=== PATIENT | male | born 1980 | race Caucasian/White ===

== ENCOUNTER 2025-04-06 21:47 | Inpatient (IN) | payer OTHER, SELFPAY ==
[2025-04-06] VITALS (15 sets, daily range): BP systolic 135–157; BP diastolic 97–115; PULSE 89–124; BMI 32.3
[2025-04-06 11:51] LABS: % Basophils 0.4 % (0-2); % Eosinophils 2.5 % (0-6); % Immature Granulocytes 0.3 % (0-0.5); % Lymphocytes 29.1 % (20.5-51.1); % Monocytes 9.6 % (1.7-9.3); % Neutrophils 58.1 % (42.2-75.2); Absolute Eosinophils 0.2 10^3/uL (0-0.7); Absolute Monocytes 0.7 10^3/uL (0.1-0.6); Absolute Neutrophils 3.9 10^3/uL (1.4-6.5); Hematocrit 33.2 % (39.0-52.0); Hemoglobin 10.9 g/dL (13.0-18.0); Mean Corp Hgb Conc. 32.8 g/dL (33.0-37.0); Mean Corpuscular Hgb 27.7 pg (27.0-31.0); Mean Corpuscular Volume 84.3 fL (80.0-94.0); Mean Platelet Volume 11.6 fL (7.4-10.4); Nucleated Red Blood Cells % 0 % (-); Platelet Count 162 10^3/uL (130-400); Red Blood Cell Count 3.94 10^6/uL (4.70-6.10); Red Cell Dist. Width 13.9 % (11.5-14.5); White Blood Cell Count 6.8 10^3/uL (4.8-10.8)
[2025-04-06 12:24] LABS: Blood Urea Nitrogen 11 mg/dl (9-20); Calcium 9.6 mg/dl (8.4-10.2); Carbon Dioxide 24 mmol/L (22-30); Chloride 103 mmol/L (98-107); Estimated Creatinine Clearance 100 ml/min; Glucose 100 mg/dl (70-99); Sodium 136 mmol/L (135-145); eGFR > 60.00
--- NOTE | 2025-04-06 12:33 | ED.GENMED ---
History of Present Illness
General
Chief Complaint: Dizziness
Source: patient
Exam Limitations: none
Time Seen by Provider: 04/06/25 12:01
Nursing documentation reviewed up to this point in time: agreed with
History of Present Illness
History of Present Illness:
Patient is a 45-year-old male who presents to the ER from nursing home. Patient reports last night he was very short of breath ' cant take a deep breath.' He was checked out today at the [facility] and while there he felt very dizzy, sent to the ER for
evaluation. He was give a liter of NSS. Patient does report he has a history of liver transplant 2020 ([facility]) however also reports he had a thoracentesis while in a alcohol rehab in [place] 2 months ago. He was living in a
sober house prior to present but then started drinking again and was then living with his mom and has not has his meds in about a week.
Review of Systems
Review of Systems
Allergies reviewed?: Yes
All Other Systems: ROS reviewed and negative except as documented in HPI and ROS
Constitutional: Reports no symptoms; Denies fever, fatigue or chills
EENT: Reports no symptoms
Respiratory: Reports trouble breathing
Cardiac: Reports no symptoms
ABD/GI: Reports no symptoms
: Reports no symptoms
Musculoskeletal: Reports no symptoms
Skin: Reports other (itchy rash to legs )
Psychiatric: Reports no symptoms
Phy Exam
General Physical Exam
General Presentation: no apparent distress
General age: appears stated age
General Skin: warm and dry
General Habitus: normal
General Mental: alert
General Hydration: appears well hydrated
Cardiovascular Exam
Cardiovascular Exam: regular rate/rhythm, no murmur and normal peripheral pulses
Pulmonary Exam
Pulmonary Exam: lungs clear and no respiratory distress
Neurological Exam
Neurological Exam: alert and oriented x3
Musculoskeletal Exam
Musculoskeletal Exam: full ROM
Skin Exam
Skin Exam: normal color, warm/dry and other ( b/l legs with macular red rash )
Psychiatric Exam
Psychiatric Exam: normal mood/affect
Course
Orders/Labs/Results
Orders:
Orders
04/06/25 11:35
EKG [Electrocardiogram (*1)] Urgent
Reason for Study: Vertigo / Dizzy
EKG- Treatment ONCE
04/06/25 11:41
Basic Metabolic Panel Urgent
CBC/With Diff [Complete Blood Count/With Diff] Urgent
04/06/25 11:48
Orthostatic VS- Treatment ONCE
04/06/25 12:45
Chest [CR Chest - 2 Views ] Urgent
Comment:
Reason For Exam: sob
04/06/25 14:21
Diphenhydramine [Benadryl] 25 mg IV NOW STA
04/06/25 14:35
DDimer [D-Dimer] Urgent
04/06/25 15:14
CT Chest PE Study Stat
Comment:
Reason For Exam: SOB
04/06/25 18:35
Pro-BNP [NT-proBNP] Urgent
Troponin I Urgent
04/06/25 18:57
Add On- LAB Urgent
Tests Added?: ferritin iron tibc, folate,b12
Legionella Urinary Antigen Routine
MIGUELANGEL Source: Urine
Specimen Description:
Sputum Culture [Respiratory Culture/Gram Stain] Routine
MIGUELANGEL Source: Sputum
Specimen Description:
Strep pneumoniae Antigen Routine
MIGUELANGEL Source: Urine
Specimen Description:
04/06/25 19:00
Ferritin Urgent
Comment: MUST COLLECT
Folate Urgent
Comment: MUST COLLECT
Iron Urgent
Comment: MUST COLLECT
Lhwxk-Dfuc-Dnpvjcu Urgent
Comment: ADD ON
Total Iron Binding Urgent
Comment: MUST COLLECT
Vitamin B12 Urgent
Comment: MUST COLLECT
04/06/25 19:07
COVID-19 Antigen Urgent
Source: Nasal Swab
Influenza A+B Rapid Molecular Urgent
MIGUELANGEL Source: Nasal Swab
Specimen Description:
04/06/25 19:49
Benzocaine/Menthol [Anesthetic Lozenge] 1 lozenge PO Q4HPRN PRN
Cetirizine HCl [Zyrtec] 10 mg PO NOW STA
Heel, Right 2 View [CR Heel/os Calcis - Right 2 Vw] Urgent
Comment:
Reason For Exam: pain
US Abdomen Complete/Upper Urgent
Comment:
Reason For Exam: Right upper quadrant pain status post liver transp
04/06/25 19:51
Add On- LAB Urgent
Tests Added?: PTT/INR
04/06/25 19:52
Add On- LAB Urgent
Tests Added?: LFT panel
04/06/25 19:55
Admit/Transfer Patient As Directed
Co-Sign Provider:
Level of Care: Inpatient admission
Assign to:: Telemetry
Physician / Group: doron alvarado
Diagnosis: R plue eff,etoh abuse, r abd pain hx liver trans,rash arms/le,sunburn knees
Reason for Telemetry: Arrhythmia
Date to Stop Telemetry: 04/09/25
Time to Stop Telemetry: 11:00
Reason for Hospitalization: R plue eff,etoh abuse, r abd pain hx liver trans,rash arms/le,sunburn knees
Expected length of stay greater than two midnights?: Yes
ELOS- Estimated Length of Stay in days: 4
I certify the patient meets the requirements for IP care: Yes
Code Status As Directed
Resuscitation Status: Full Code
04/06/25 19:57
PTT Routine
04/06/25 20:06
PRN Pain Medication Management As Directed
May give lesser potent ordered pain med per pt: Yes
preference::
Protocol:: Medication orders for pain may be administered in a
manner that supports deferring to patient preference
when the pt is:
- Requesting an ordered lesser potent pain medication.
Least to most potent pain medications are defined
as: acetaminophen < NSAID < tramadol < opioids
(morphine, oxycodone, hydromorphone).
- Requesting a lesser dose of the same medication IF
ORDERED.
- Requesting a less intrusive route of administration
if both routes are prescribed by the provider (PO <
IV).
04/07/25 08:00
Cetirizine HCl [Zyrtec] 10 mg PO DAILY
Petrolatum/Mineral Oil [Hydrophor] See Dose Instructions TOPICAL DAILY
Silver Sulfadiazine [Silvadene] See Dose Instructions TOPICAL DAILY
04/09/25 11:00
DC Protocol for Telemetry ONCE
Abnormal Lab Results
04/06/25 04/06/25
11:41 14:35
RBC 3.94 L 10^6/uL
(4.70-6.10)
Hgb 10.9 L g/dL
(13.0-18.0)
Hct 33.2 L %
(39.0-52.0)
MCHC 32.8 L g/dL
(33.0-37.0)
MPV 11.6 H fL
(7.4-10.4)
Absolute Monos (auto) 0.7 H 10^3/uL
(0.1-0.6)
Monocytes % 9.6 H %
(1.7-9.3)
D-Dimer 2.49 H ug/mlFEU
(0.00-0.50)
Glucose 100 H mg/dl
(70-99)
04/06/25 11:41
04/06/25 11:41
Vital Signs
Initial and Last Documented VS:
Initial Vital Signs
Temp Pulse Resp BP Pulse Ox
98.7 F 95 15 149/102 97
04/06/25 11:36 04/06/25 11:36 04/06/25 11:36 04/06/25 11:36 04/06/25 11:36
Last Documented Vital Signs
Temp Pulse Resp BP Pulse Ox
98.7 F 98 21 156/103 97
04/06/25 11:36 04/06/25 15:15 04/06/25 15:15 04/06/25 15:00 04/06/25 15:15
MDM/Problems Addressed
MDM/Problems Addressed:
Patient is a 45-year-old male sent from [facility] for evaluation. This document patient was sent for shortness of breath and dizziness. Patient has a history of alcohol abuse liver transplant however has not taken his antirejection meds
in the past several days. He was given a liter of fluids at the nursing home prior to arrival. Patient describes some discomfort with deep breath. He is not hypoxic. He does report that he had a pleural effusion drained in [place] 2 months ago while
in recovery house. Patient's workup includes labs and a CT scan(as his D-dimer was elevated. CT scan does show a moderate size right pleural effusion mild cardiomegaly and with symptoms of shortness of breath would recommend admission. Case
reviewed ED physician. His BNP is 283 with a negative troponin his white count is normal.
Patient was given a little Benadryl because he complains of bilateral itchy rash from his present garments.
*Radiology
Radiology exam reviewed: radiology read reviewed
*Pulse Oximetry
Patient hypoxic: no
*EKG
Interpreted by ED Provider?: Yes
Heart Rate: 93
Rate: normal
Rhythm: sinus
Ischemia: no ischemia
*Critical Care Note
Total Time (30-74mins, 75-104mins- exclusive of procedures): Not Applicable
ED Attending Note
-
Portions of this chart may have been created with voice recognition software.� Occasional wrong word or��sound alike� substitutions may have occurred due to the inherent limitations of voice recognition software.
Discharge Plan
Departure
Patient Disposition: Admit
Date of Disposition: 04/06/25
Time of Disposition: 18:37
Admit to: Telemetry
Admit to doctor: hospitalist
Presentation/result/management discussed w/ accepting MD/DO: Hospitalist
Patient with high blood pressure during this ER visit?: Yes
Condition: Fair
Covid-19: Not Applicable
Discharge Problem:
shortness of breath, Pleural effusion, Dizziness
Prescriptions:
No Action
atorvastatin [Lipitor] 40 mg Tablet
40 mg PO HS
mycophenolate mofetil 250 mg Capsule
750 mg PO BID
prednisone 5 mg Tablet
5 mg PO DAILY
clonazepam 1 mg Tablet
1 mg PO DIRECTED
Rx Instructions:
on 04/06 and 04/07 take 2mg bid then on 04/08 and 04/09 take 1mg tid then on 04/10 and 04/11 take 1mg bid then on 04/12 and 04/13 take 0.5mg bid then on 04/14 take 0.5mg daily then stop
thiamine HCl (vitamin B1) 100 mg Tablet
100 mg PO DAILY
aspirin 81 mg Tablet,Delayed Release (Dr/Ec)
81 mg PO DAILY
gabapentin 800 mg Tablet
800 mg PO TID
hydrocortisone 1 % Cream
1 applic TOPICAL BIDPRN PRN (Reason: skin problem)
folic acid 1 mg Tablet
1 mg PO DAILY
tacrolimus [Prograf] 0.5 mg Capsule
1.5 mg PO Q12H
escitalopram oxalate [Lexapro] 10 mg Tablet
10 mg PO DAILY
lactulose 10 gram/15 mL Solution
10 g PO TID
cholecalciferol (vitamin D3) [Vitamin D3] 25 mcg (1,000 unit) Tablet
25 mcg PO DAILY
insulin glargine [Semglee Pen U-100 Insulin] 100 unit/mL (3 mL) Insulin Pen
20 unit SC QPM
Xifaxan 550 mg Tablet
550 mg PO BID
magnesium oxide 400 mg magnesium Tablet
400 mg PO TID
Referrals:
[facility] [Family Provider] -
Interventions
Interventions:
*Risk Screen - Suicide Last Done: 04/06/25 11:36
*General Assessment Last Done: 04/06/25 11:36
*Neglect/Abuse Screening Last Done: 04/06/25 11:36
*ED- Fall Risk Assessment Last Done: 04/06/25 11:36
ED- Neurological Assessment Last Done: 04/06/25 11:46
ED- Cardiac Assessment Last Done: 04/06/25 11:46
ED Swallowing Screen Last Done: 04/06/25 11:46
Discharge Date and Time
Print Language: CHINESE
[2025-04-06] MEDS: BENADRYL 25 MG IV (14:29)
[2025-04-06 15:02] LABS: D-Dimer 2.49 ug/mlFEU (0.00-0.50)
--- NOTE | 2025-04-06 18:55 | HPS.HSE ---
Family Physician
-
Family Physician: Facility [facility]
Chief Complaint
-
shortness of breath
History of Present Illness
45-year-old male from [facility] complaining of feeling short of breath since last night with having difficulty taking a deep breath. He also complains of right upper quadrant pain along the incision line near his current
liver. He went to the [facility] today where he was complaining of dizziness and sent to the ER for evaluation. He is status post liver transplant at [facility] in 2020 secondary to alcohol abuse. He reports receiving a hepatitis C infected
liver however he was treated for hepatitis C after that for approximately 6 months he then began drinking only 8 to 9 months after his transplant. He reports he would binge drink and then for the past year has been drinking 2 pints of vodka
approximately 3 times a week. He states during 2020 he also had acute renal failure and did require temporary dialysis in and 2021. He has been from his since August however he went to his home on Saturday the police were
called that she has a PFA. He was driven to a local hotel and told to stay there but he decided during his intoxicated state to go back to his home to try to drive his truck that is when he was arrested was unable to post bail and taken to [facility]. He reports he has been missing his medication for 5 days at a time. He has been in and out of a sober living house since January he has only been sober approximately 4 weeks in between he has been at multiple rehabs.
He states he was at a rehab in [place] where he injured his left knee playing football with his son that is swollen. He states he had it x-rayed a few weeks ago and told he could possibly have a ligament injury. His right heel has
been bothering him due to his gait being off balance from the injury. He states he was in [place] at a rehab in January where he had fluid developed in his right lung that was drained by thoracentesis this was thought to be due to his liver. He is
also not been taking any blood pressure medication since 2020.
His past medical history of liver failure due to alcohol use status post liver transplant [facility] 2020 on antirejection medication, history of hepatitis C liver transplant that was treated post transfer, history of temporary dialysis 2020
and 2021 due to acute renal failure, right sided pleural effusion status postthoracentesis January 2024 in [place] thought to be due to liver, anxiety/depression, DM2, hypertension
Medical History
Past Medical History
Past Medical History: Reports Other
Additional Past Medical History:
liver failure due to alcohol use status post liver transplant [facility] 2020 on antirejection medication
history of hepatitis C liver transplant that was treated post transfer
history of temporary dialysis 2020 and 2021 due to acute renal failure
right sided pleural effusion status postthoracentesis January 2024 in [place] thought to be due to liver
Current alcohol abuse binge drinker
anxiety/depression
DM2
hypertension
Occasional smoker
History of ARF 2020 requiring temporary dialysis at [facility]
Eczema bilateral hands
Past Surgical History: Reports Other
Additional Past Surgical History:
Liver transplant 2020
Social History
Tobacco: Smoker (Smokes when he is drinking)
Alcohol: Chronic Alcoholic (Currently drinking 2 pints of vodka 3 times a week)
Drug: None
Personal: (But currently with a protection from abuse)
Living: [facility] since April 03, 2025)
Family History
Family History: Not pertinent
Allergies / Home Medications
Allergies reflects when Allergies were last updated in [employer].
Home Medications with original date entered in [employer]
Allergy/Medication List:
Allergies
Allergy/AdvReac Type Severity Reaction Status Date / Time
No Known Allergies Allergy Unverified 04/06/25 11:39
Home Medications
aspirin 81 mg tablet,delayed release 81 mg PO DAILY 04/06/25
atorvastatin 40 mg tablet (Lipitor) 40 mg PO HS 04/06/25
cholecalciferol (vitamin D3) 25 mcg (1,000 unit) tablet (Vitamin D3) 25 mcg PO DAILY 04/06/25
clonazepam 1 mg tablet 1 mg PO DIRECTED 04/06/25
escitalopram oxalate 10 mg tablet (Lexapro) 10 mg PO DAILY 04/06/25
folic acid 1 mg tablet 1 mg PO DAILY 04/06/25
gabapentin 800 mg tablet 800 mg PO TID 04/06/25
hydrocortisone 1 % topical cream 1 applic topical BIDPRN PRN skin problem 04/06/25
insulin glargine 100 unit/mL (3 mL) subcutaneous pen 20 unit SC QPM 04/06/25
lactulose 10 gram/15 mL oral solution 10 g PO TID 04/06/25
magnesium oxide 400 mg PO TID 04/06/25
mycophenolate mofetil 250 mg capsule 750 mg PO BID 04/06/25
prednisone 5 mg tablet 5 mg PO DAILY 04/06/25
rifaximin 550 mg tablet (Xifaxan) 550 mg PO BID 04/06/25
tacrolimus 0.5 mg capsule, immediate-release (Prograf) 1.5 mg PO Q12H 04/06/25
thiamine HCl (vitamin B1) 100 mg tablet 100 mg PO DAILY 04/06/25
Review of Systems
-
History Source: Patient and Other (2 correctional officers at bedside)
A 12 point ROS was completed and negative except as noted: Yes
Constitutional: Denies Fever or Chills
EENT: Reports Sore Throat and Other (Postnasal drip with swollen uvula no erythema)
Respiratory: Reports Cough (Nonproductive) and Trouble Breathing
Cardiac: Denies Chest Pain, Diaphoresis, Palpitations or Syncope
Abdomen/GI: Reports Abdominal Pain (Right upper quadrant along liver incision line); Denies Nausea, Vomiting, Diarrhea, Constipated, Bloody Stools or Black Stools
: Reports Dark Urine (Centre-colored urine); Denies Dysuria, Frequency, Flank Pain, Incontinence, Difficulty Voiding, Urgency or Bleeding
Musculoskeletal: Reports Joint Pain (Left knee with effusion) and Other (Right heel pain with tender heel no erythema); Denies Edema
Skin: Reports Itching and Rash (Eczema bilateral hands to lower forearms, petechial rash with wheals to arms and legs from present jumpsuit, sunburn bilateral thighs and knees)
Neurological: Denies Dizzy or Headache
Endocrine: Reports No Symptoms
Hematologic/Lymphatic: Reports No Symptoms
Psych: Reports Calm
Physical Exam
Vital Signs
Vital Signs
Temp Pulse Resp BP Pulse Ox
98.7 F 98 21 156/103 97
04/06/25 11:36 04/06/25 15:15 04/06/25 15:15 04/06/25 15:00 04/06/25 15:15
Physical Exam
General: Comfortable and Conversant; No Fever or Chills
HEENT: NormoCephalic, Anicteric, Moist mucous membranes, PERRLA, [place] Conjunctivae, No Ptosis and Other (Swollen clear uvula with reported postnasal drip); No Pharyngeal Erythema
Respiratory: Clear and Other (Diminished lung sounds throughout right lung); No Wheezes or Rales
Cardiac: S1/S2 and Regular Rhythm; No Murmur, Rub, Gallop or Peripheral Edema
Breast: Deferred by me
GI: Soft, Non Distended, Normal Bowel Sounds and Tender (Right upper quadrant along incision line status post liver transplant)
Genito-urinary: Deferred by me
Musculoskeletal: No Clubbing, No Cyanosis, No Edema and Other (Swollen left knee x 1 month, right heel with pain and tenderness, bilateral ankles handcuffed to bed)
Skin: Warm, Dry and Rash (Eczema bilateral hands to lower forearms, petechial rash with wheals to arms and legs from present jumpsuit, sunburn bilateral thighs and knees)
Neuro: AO x 3, No Motor Deficits, Nonfocal/grossly intact, Cranial Nerves Intact and No Sensory Deficits; No Slurred Speech, Facial Droop, Tremors or Sedated
Psych: Calm
Laboratory Results
-
04/06/25 11:41
04/06/25 11:41
Laboratory Results
Total Bilirubin Cancelled 04/06/25 11:41
AST Cancelled 04/06/25 11:41
ALT Cancelled 04/06/25 11:41
Alkaline Phosphatase Cancelled 04/06/25 11:41
Data Reviewed
-
Diagnostic Radiology: Report Reviewed by me
Lab Data: Labs Reviewed by me
Impression/Plan
-
Impression/plan:
Admit to telemetry
#Acute dyspnea 2/2 Moderate RIGHT Sided pleural effusion with possible Right lower lobe Pneumonia VS CHF
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
97% RA
- Consult IR for thoracentesis with cytology
- IV vancomycin ,IV Zosyn
-Check BNP
- Strep antigen, Legionella, sputum culture
- Follow CBC, CMP
CT PE study:
1. MODERATE-SIZED RIGHT PLEURAL EFFUSION.
2. Moderate subpleural ground-glass opacity in the basilar segments of the right lower lobe. Diagnostic possibilities are (1) compressive subsegmental atelectasis or (2) right lower lobe pneumonia
(if there are signs/symptoms of pulmonary infection).
3. Mild cardiomegaly.
4. Mild calcific atherosclerotic plaque in the left coronary artery.
5. Right upper quadrant liver transplant in place.
6. Severe bilateral gynecomastia.
#Uncontrolled hypertension
BP 156/103 patient has not taken his carvedilol XR since 2020
-As needed labetalol SBP> 165
EKG: NSR 93 bpm, QTc 442 MS, possible inferior infarct subtle T wave inversions lead III and flattening in aVF
#Contact dermatitis with urticarial rash likely secondary to laundry detergent from longterm
- Continue prednisone 5 mg daily
- Start Zyrtec 10 mg now and daily
- May apply Aquaphor to hands and legs
#Uvulitis viral with postnasal drip
- Will start saline nasal spray and Zyrtec 10 mg now and daily
#Eczema bilateral hands/forearms exacerbation
-Aquaphor may apply to hands and legs
#Alcohol abuse started drinking 8 to 9 months after his liver transplant
-Last drink 04/05/2025 typically drinks 2 pints of vodka 3 times a week binge drinks until he passes out
Patient has been receiving clonazepam at [facility]
-Continue folic acid 1 mg daily
- Start thiamine 100 mg p.o. daily
-was on clonazepam in long-term last drink was 3 days ago will continue patient's clonazepam taper starting with 2 mg twice daily to taper down to 0.5 mg on 04/13
-MSAS screen with protocol
#Right upper quadrant pain at prior incision line
#Liver transplant [facility] 1�received hepatitis C liver that was treated for hepatitis C post transfer
#History of liver failure due to alcohol abuse
- Patient has missed his rejection medication over the past 5 days
- Resume Prograf 1.5 mg every 12 hours, Xifaxan 550 mg p.o. twice daily, lactulose 10 g p.o. 3 times daily
- Continue mycophenolate 750 mg p.o. twice daily
- Continue prednisone 5 mg daily
- Continue Mag-Ox 400 mg p.o. 3 times daily
*Check ultrasound right upper quadrant due to pain along right upper quadrant and along prior incision line concern for any ascites
# Acute on chronic left knee swelling due to prior twist injury playing football December 2024
- Recommend follow-up outpatient MRI of left knee once bailed out of long-term by patient's father
# Acute right heel pain/erythema likely due to weightbearing right leg from left knee swelling
-X-ray right heel
# Acute sunburn bilateral knees upper thighs
- Apply Silvadene cream to bilateral thighs/knees
#DM 2/diabetic neuropathy
Accu-Cheks with SSI, check HgbA1c
Glucose 100
-Hold insulin glargine 20 units SQ every afternoon due to glucose 100
- Continue gabapentin 800 mg p.o. 3 times daily
#History of ARF with temporary dialysis 2020/2021 during transplant stay
#Anxiety/depression
Continue Lexapro 10 mg daily,
#Anemia�normocytic
Hgb 10.9
-Check iron panel, B12, folate
#HLD
Continue Lipitor 40 mg at bedtime
#Class I obesity�BMI 32.2
Affects all aspects of care
Weight loss recommended
DVT prophylaxis
Subcu heparin
Full code
[2025-04-06 19:04] LABS: NT-proBNP 283 pg/ml; Troponin I < 0.012 ng/ml
[2025-04-06 19:43] LABS: COVID-19 Antigen Negative (Negative)
--- NOTE | 2025-04-06 19:58 | W.PN.UPDATE ---
Update Note
Progress Note Update
This is an addendum to H&P written by Yolande Hannah on 04/06/2025.� Patient seen examined independently with MANAGER SUPPORT.
45-year-old male past medical history of alcoholic cirrhosis status post liver transplant in 2020, history of thoracentesis secondary to hepatic hydrothorax 2 months ago, diabetes, anxiety/depression, neuropathy, presenting from present with
shortness of breath, cough.� Has been drinking alcohol and not taking his transplant medications.
Complains of right upper quadrant pain at the site of liver transplant.
He complains of left knee pain and swelling that has been ongoing since December.� He recently had x-rays and was told that he may have had an MCL injury.� Also complains of right heel pain, and warmth.�
Also has bilateral lower extremity itchy rash since wearing present jumpsuit.
Also with enlarged inflamed uvula with sore throat and postnasal drip.
Patient with elevated blood pressure up to 156/103.
D-dimer of 2.5.� Hemoglobin 10.9.
On examination he has enlarged uvula without erythema.� He has swollen left knee with erythema above likely sunburn.� On the lower extremities he has urticarial rash below the knees bilaterally.� He has eczema on the bilateral hands.
Chest x-ray shows no acute pulmonary process.� CT PE chest shows moderate-sized right pleural effusion, moderate subpleural groundglass opacity in the basilar segments of the right lower lobe possibly secondary to compressive segment segmental
atelectasis versus right lower lobe pneumonia.� Mild cardiomegaly.
COVID and flu pending.
Cardiac BNP pending.
Patient with likely right lobar pneumonia with parapneumonic effusion versus pleural effusion secondary to hepatic hydrothorax which is more likely.
Start vancomycin/Zosyn.� Check sputum culture, strep antigen, Legionella.� IR for thoracentesis with pleural fluid studies.� Check liver ultrasound to evaluate for ascites and evidence of transplant rejection.� Check LFTs.� Check INR.� Alcohol
withdrawal protocol, thiamine and folate.� As needed labetalol for hypertension.
Start Zyrtec to treat urticaria.� Already on prednisone. Aquaphor for contact dermatitis from [employer] uniform. Silvadene for sunburn.
Check right heel x-ray due to pain warmth.
Outpatient follow-up for MRI of the left knee to evaluate MCL injury.
[2025-04-06 20:33] LABS: APTT 36.6 Sec (23.4-35.0)
[2025-04-06 20:37] LABS: ALT (SGPT) 39 U/L (0-50); AST (SGOT) 44 U/L (17-59); Albumin 3.6 g/dl (3.5-5.0); Alkaline Phosphatase 217 U/L (38-126); Direct Bilirubin 0.6 mg/dl (0.0-0.4); Iron 36 ug/dl (49-181); Total Bilirubin 2.6 mg/dl (0.2-1.3); Total Protein 6.6 g/dl (6.3-8.2)
[2025-04-06 20:46] LABS: Percent Saturation 11 % (20-50); Total Iron Binding Capacity 306 ug/dl (261-462)
[2025-04-06] MEDS: ZYRTEC 10 MG PO (21:20)
[2025-04-06 21:43] LABS: Folate > 20.0 ng/ml (2.76-20); Vitamin B12 968 pg/ml (239-931)
[2025-04-06 23:37] LABS: Hematocrit 32.4 % (39.0-52.0)
[2025-04-06 23:42] LABS: GGTP 439 U/L (15-73); Glucose 105 mg/dl (70-99); INR 1.19; LDH 168 U/L (120-246); Magnesium 1.4 mg/dl (1.6-2.3); PT 15.4 Sec (11.4-14.6); Phosphorus 3.8 mg/dl (2.5-4.5); Total Protein 6.2 g/dl (6.3-8.2)
[2025-04-06 23:43] LABS: APTT 33.6 Sec (23.4-35.0)
[2025-04-06 23:46] LABS: Alcohol None Detected
[2025-04-06 23:46] LABS: Urine Albumin 2+ (Neg - Trace); Urine Bilirubin Negative (Negative); Urine Character Clear (Clear); Urine Color Yellow; Urine Glucose Negative (Negative); Urine Ketone Negative (Negative); Urine Leukocyte Negative (Negative); Urine Nitrite Negative (Negative); Urine Occult Blood Negative (Negative); Urine Specific Gravity 1.015 (<1.030); Urine Urobilinogen 2+ (Neg - 1+)
[2025-04-06 23:49] LABS: B-Hydroxybutyrate 0.08 mmol/L (0.02-0.27)
[2025-04-06 23:54] LABS: Urine Bacteria Few (Negative); Urine Red Blood Cell 0-2 /HPF (0-2); Urine White Cell 0-2 /HPF (0-5)
[2025-04-06 23:58] LABS: Amphetamines Negative (Negative); Barbiturates Negative (Negative); Benzodiazepines Positive (Negative); Buprenorphine Negative (Negative); Cocaine Negative (Negative); Marijuana Negative (Negative); Methadone Negative (Negative); Methamphetamines Negative (Negative); Opiates Negative (Negative); Phencyclidine Negative (Negative); Tricyclic Antidepressants Negative (Negative)
[2025-04-07] VITALS (10 sets, daily range): BP systolic 125–166; BP diastolic 86–115; BMI 32.1
[2025-04-07] MEDS: MOTRIN 400 MG PO (00:09)
[2025-04-07] MEDS: NEURONTIN 800 MG PO ×4 (00:09→23:27)
[2025-04-07] MEDS: DUPHALAC/CHRONULAC 10 GRAMS PO ×4 (00:10→23:26)
[2025-04-07] MEDS: KLONOPIN 2 MG PO ×2 (00:10→08:46)
[2025-04-07] MEDS: PROGRAF 1.5 MG PO ×3 (00:11→23:28)
[2025-04-07] MEDS: OCEAN, SALINE MIST NASAL ×4 (00:12→12:47)
[2025-04-07] MEDS: ZOSYN 50 IV ×4 (00:12→16:17)
[2025-04-07] MEDS: THIAMINE INJECTION 200 MG IV ×3 (00:13→21:36)
[2025-04-07] MEDS: MAG-TAB SR 84 MG PO ×4 (00:14→23:27)
[2025-04-07 00:23] LABS: Fentanyl, Urine Negative (Negative)
--- NOTE | 2025-04-07 00:45 | W.PN.UPDATE ---
Update Note
Progress Note Update
Reported by the nursing staff that the patient has suicidal ideation.
On assessment,
Patient is alert and oriented looks depressed, teary eyes during our conversation. He started to explain his life situation, separation with and kids and how it affects his life now.
he admitted that he has suicidal ideation but does not have a plan at the mean time and he wish that he has the courage to do it.
Will order 1:1 for now for safety and psych consult placed.
[2025-04-07] MEDS: VANCOCIN 540 MG IV (00:57)
[2025-04-07 06:02] LABS: % Basophils 0.7 % (0-2); % Eosinophils 3.1 % (0-6); % Immature Granulocytes 0.2 % (0-0.5); % Lymphocytes 34.7 % (20.5-51.1); % Monocytes 11.4 % (1.7-9.3); % Neutrophils 49.9 % (42.2-75.2); Absolute Eosinophils 0.2 10^3/uL (0-0.7); Absolute Lymphocytes 1.9 10^3/uL (1.2-3.4); Absolute Monocytes 0.6 10^3/uL (0.1-0.6); Absolute Neutrophils 2.8 10^3/uL (1.4-6.5); Hematocrit 30.8 % (39.0-52.0); Hemoglobin 10.2 g/dL (13.0-18.0); Mean Corp Hgb Conc. 33.1 g/dL (33.0-37.0); Mean Corpuscular Volume 84.6 fL (80.0-94.0); Mean Platelet Volume 10.7 fL (7.4-10.4); Nucleated Red Blood Cells % 0 % (-); Platelet Count 157 10^3/uL (130-400); Red Blood Cell Count 3.64 10^6/uL (4.70-6.10); White Blood Cell Count 5.5 10^3/uL (4.8-10.8)
[2025-04-07 06:24] LABS: ALT (SGPT) 33 U/L (0-50); AST (SGOT) 36 U/L (17-59); Albumin 3.4 g/dl (3.5-5.0); Alkaline Phosphatase 216 U/L (38-126); Blood Urea Nitrogen 9 mg/dl (9-20); Calcium 8.6 mg/dl (8.4-10.2); Carbon Dioxide 22 mmol/L (22-30); Chloride 108 mmol/L (98-107); Estimated Creatinine Clearance 110 ml/min; Glucose 89 mg/dl (70-99); Potassium 3.8 mmol/L (3.5-5.1); Sodium 139 mmol/L (135-145); Total Bilirubin 2.1 mg/dl (0.2-1.3); Total Protein 6.1 g/dl (6.3-8.2); eGFR > 60.00
[2025-04-07 08:42] LABS: Glucose - Point of Care 90 mg/dl (70-99)
[2025-04-07] MEDS: NOVOLOG FLEXPEN-LOW RESISTANCE SC ×3 (08:44→16:56)
[2025-04-07] MEDS: XIFAXAN 550 MG PO ×2 (08:45→21:37)
[2025-04-07] MEDS: VITAMIN D3 (cholecalciferol) 25 MCG PO (08:45)
[2025-04-07] MEDS: FOLVITE 1 MG PO (08:45)
[2025-04-07] MEDS: LEXAPRO 10 MG PO (08:45)
[2025-04-07] MEDS: ZYRTEC 10 MG PO (08:45)
[2025-04-07] MEDS: ASPIR LOW (ENTERIC COATED) 81 MG PO (08:45)
[2025-04-07] MEDS: DELTASONE 5 MG PO (08:45)
[2025-04-07] MEDS: CELLCEPT 750 MG PO ×2 (08:48→21:31)
[2025-04-07] MEDS: HYDROPHOR TOPICAL ×2 (08:49→08:53)
[2025-04-07] MEDS: SILVADENE TOPICAL ×2 (08:50)
[2025-04-07 08:55] LABS: Glycohemoglobin (HgbA1c) 5.1 % (4.0-5.6)
[2025-04-07] MEDS: VANCOCIN 530 MG IV (09:04)
--- NOTE | 2025-04-07 09:52 | CM ---
Case Management Consult completed
[employer] In[employer] spoke with [place] RN; reported that patient was incarcerated on 04/04
When asked if [facility] counselor can be consulted to meet with patient, [facility] RN, stated 'NO'; she will contact the ED for report and arrange for patient to be transported back to facility once patient is stable
--- NOTE | 2025-04-07 09:53 | PHA.VAN.IN ---
Assessment
- Assessment
Renal Function: Unknown baseline
Maximum Temperature: 99
Minimum Temperature: 98.1
Concomitant Antimicrobials: piperacillin/tazobactam
AUC Dosing Plan
- Dosing Variables
Dosing Weight (kg): 99
Dosing CrCl (ml/min): 100
Vd coefficient (L/kg): 0.6
- Empiric Dosing
Initial / Loading Dose: vancomycin 2000 mg x 1
Maintenance Regimen: vancomycin 1250 mg Q12H
Estimated AUC (mcg*h/mL): 513
Estimated Peak (mcg*h/mL): 32.4
Estimated Trough (mcg/ml): 12.9
Estimated Half Life (H): 7.9
- Monitoring
No levels ordered at this time: consider levels in next few days
MRSA Screen: Ordered per protocol
Pharmacokinetics Vancomycin I
- -
Patient Age: 45
Patient Sex: Male
Vancomycin Day #: 1
Indication: Pulmonary/Respiratory
Requesting Provider: Yolande Hannah
Pertinent Antimicrobial Allergies:
nkda
Height / Weight:
Height 5 ft 9 in
Actual Weight 99 kg
IBW in k.7
Adjusted BW in k
Pertinent Past Medical History: lier transplant in 2020
- Vital Signs / Lab Results
Temp Pulse Resp BP Pulse Ox
98.1 F 80 11 147/115 100
04/07/25 07:44 04/07/25 09:33 04/07/25 09:33 04/07/25 09:33 04/07/25 09:35
Lab Results - Hematology
04/06/25 04/07/25
11:41 05:42
WBC 6.8 5.5
Lab Results - Chemistry
04/06/25 04/06/25 04/07/25
11:41 20:10 05:42
BUN 11 9
Creatinine 1.1 1.0
Estimated Creat Clear 100 110
Albumin Cancelled 3.6 3.4 L
Lab Results - Urine
04/06/25
23:39
Urine Nitrite Negative
Ur Leukocyte Esterase Negative
Urine WBC 0-2
Ur Squamous Epith Cells 3-5
Urine Bacteria Few A
Microbiology Results
04/06/25 20:11 Legionella Urinary Antigen - Final
Urine Negative for Legionella pneumophila Serogroup 1 antigen.
A negative result does not rule out the possiblity of
Legionella infection due to other serogroups or species of
Legionella. Clinical correlation is recommended.
Streptococcus pneumoniae Antigen (M - Final
Negative for Streptococcus pneumoniae antigen.
A negative result does not exclude infection with
Streptococcus pneumoniae. Clinical correlation is
recommended.
04/06/25 19:07 Influenza Types A & B (ADAN) - Final
Nasal Swab Negative for Influenza A & B, NAAT
Negative results must be combined with clinical observations
and patient history.
Nucleic Acid Amplification test (NAAT)performed on the
[employer] platform.
--- NOTE | 2025-04-07 11:39 | CON.MD ---
Consultation - Medical
-
patient seen chart reviewed. the patient is a 45 year old male brought here from [facility] bc shortness of breath and dizziness. in the course of treating him he made comments about suicidality hence this consult. he has had major stressors in his
life. he had a liver transplant in 2020 after liver failure allegedly secondary to his etoh abuse. the transplanted liver with infected w hep c. he was treated afterwards for hep c. about six to nine months after rx he started drinking again in
binge fashion two pints vodka about 3 x weekly. at this point he could have pneumonia w effusion or effusional could be secondary to liver disease (hepatic hydrothorax) he admits he has thought of suicide but has never made an attempt and has no
intent or plan. he would not act on si while here. he and his have . he has three dies 13 11 and 7 he attempted to his home and violated a pfa she had and wound up in fdc. at this point he wants treatment. he is hoping he can get
his physical needs addressed first then consider where to go for his etoh abuse and depression. he is currently taking lexapro 10 mg . he is on a quick taper of klonopin over the next several days. he is also taking gabapentin 800 mg tid.
past psych hx patient has been admitted in the past for psych to dual dx rehab and straight psych facilities ([facility]) he does not feel any of his stays were helpful. he was not currently in out pt treatment
medical hx see above in addition overweight smoker htn dm hx dialysis in periods of renal failure eczema currently has rash. anemia bzp in tox bal zero ecg qtc 442 abnormal
fh depression anxiety
substance abuse see above denies other
social at this point from . three kids currently incarcerated at [facility] disabled
mse alert ox3 but a little sleepy. speech and thought process c/w sedated state. goal oriented no psychosis affect constricted mood depressed. states has had si but will not hurt self aver intell insight judgment impaired
dx unspecified depression r.o bipolar etoh use disorder severe
plan would continue w current regimen but i do wonder if we should start him on msas protocol. his bp is quite high this am although he seems more sedated at this moment than withdrawing. . will discuss w er pharmacist. the senior living has said we are
not to contact [facility]. he will need aftercare would suggest dual dx but or course medical rx comes first. do not feel he needs one to one . he has two senior living guards next to him in any case. will follow
[2025-04-07 12:42] LABS: Glucose - Point of Care 124 mg/dl (70-99)
--- NOTE | 2025-04-07 14:01 | W.PN.HOSP.TC ---
Addendum entered and electronically signed by Marcos Aceves MD 04/07/25 23:06:
Attending Addendum-
I saw and evaluated the patient. I reviewed the resident�s note and agree with findings and plan as documented in the resident�s note. Sub: Denies SI or HI. Feels SOB and requesting Benadryl. Seen with CO present. Denies CP palps. fevers chills.
Full 12 point ROS reviewed and negative except as documented Exam: Vitals reviewed in chart GEN-NAD Heart RRR lungs decreased BS RLL abd soft LE no edema
Plan:
#Acute dyspnea
#History of pleural effusion drained before in [place] approximately 2 months ago patient was told due to hepatic hydrothorax
97% RA
- Consult IR for thoracentesis- not enough fluid to tap per chest US
- CT chest- no pe but showing moderate right pleural effusion? CXR- WNL
- DC vancomycin/ Zosyn- no sxs correlating with PNA
- Strep antigen, Legionella, sputum culture-neg
- Follow CBC, CMP
- repeat CXR in am
# SI
- denying SI or plan
- DC 1:1
- appreciate psych Input
#Uncontrolled hypertension
- As needed labetalol SBP> 165
- start norvasc
#Contact dermatitis with urticarial rash likely secondary to laundry detergent from detention
- cont Zyrtec 10 mg now and daily
- May apply Aquaphor to hands and legs
#Eczema bilateral hands/forearms exacerbation
-Aquaphor may apply to hands and legs
#Alcohol abuse started drinking 8 to 9 months after his liver transplant
- Last drink 04/05/2025 typically drinks 2 pints of vodka 3 times a week binge drinks until he passes out
- Patient has NOT been receiving clonazepam at [facility]
- PDMP reviewed
- Continue folic acid 1 mg daily
- Start thiamine 100 mg p.o. daily
- DC clonazepam
- start [facility] protocol with sxs based treatment
#Right upper quadrant pain at prior incision line
#Liver transplant [facility] 2021�received hepatitis C liver that was treated for hepatitis C post transfer
#History of liver failure due to alcohol abuse
- Patient has missed his rejection medication over the past 5 days
- Resume Prograf 1.5 mg every 12 hours, Xifaxan 550 mg p.o. twice daily, lactulose 10 g p.o. 3 times daily
- Continue mycophenolate 750 mg p.o. twice daily
- Continue prednisone 5 mg daily
# right calc small fx
-PT OT WBAT
#DM 2/diabetic neuropathy
Accu-Cheks with SSI
Glucose 100
- Hold insulin glargine 20 units SQ every afternoon due to glucose 100- sugars controlled off insulin
- Continue gabapentin 800 mg p.o. 3 times daily
- check HBa1c
#History of ARF with temporary dialysis during transplant stay
#Anxiety/depression
Continue Lexapro 10 mg daily,
#HLD
Continue Lipitor 40 mg at bedtime
#Class I obesity�BMI 32.2
Affects all aspects of care
Weight loss recommended
DVT prophylaxis
Subcu heparin
Full code
[facility]
ACP
Patient consented to discuss, was alone, time spent explanation of advance directives, changes in health status, patient�s health care wishes if the patient becomes unable to make health decisions, goals of care, code status, and prognosis- 16
minutes
Time spent coordinating care, review of plan of care with resident, personally reviewed previous records in EMR, med rec, labs, radiology, d/w nursing, total time documented is exclusive of any additional time listed that was spent in advance care
planning discussion -�51 minutes
Original Note:
Today's Communication/Plan
-
.
Assessment / Plan
Assessment / Plan
45-year-old male presenting to the ER reporting shortness of breath and dizziness.
Assessment/plan
1. Acute dyspnea
Likely due to parapneumonic effusion versus pneumonia versus hepatic hydrothorax
CT chest evidence of right pleural effusion, GGO's in the right lower lobe suggestive of pneumonia
Legionella, Streptococcus PNA antigen negative
Continue vancomycin, Zosyn
MRSA pending
IRad consulted for thoracocentesis, but could not yield a proper tap
Appreciate Irad input
2. Alcohol abuse disorder
Continue thiamine/folate
Alcohol withdrawal protocol with Ativan
Discontinued clonazepam after PDMP verification
3. History of liver failure due to alcohol abuse, s/p liver transplantation.
Ultrasound abdomen�previous cholecystectomy, mild splenomegaly, right upper quadrant liver transplant in place.
Continue mycophenolate, tacrolimus, prednisone, rifaximin, magnesium oxide
4. Contact dermatitis
Continue prednisone, cetirizine
5. Type 2 diabetes mellitus with diabetic neuropathy
Accu-Cheks with SSI
HbA1c 5.1
Continue gabapentin
6. Hypertension
Patient noncompliant with home medication
Labetalol as needed
7. Anxiety/depression
Continue Lexapro
8. Normocytic anemia
Hemoglobin 10.2
Monitor
9. Hyperlipidemia
Continue Lipitor
10.�Suicidal ideation
Reported by the nursing staff�patient had suicidal ideation but does not have a plan
Psych consulted
Initiated on M lary protocol
No access to be cares from present
DVT prophylaxis�heparin subcu
PT/OT consulted
Anticipated Discharge: Within 24 hours
Subjective/Interval History
-
Date of Service: April 07, 2025
Patient sleeping, feels very drowsy.
Objective Data
-
Labs:
Laboratory Results
04/07/25
05:42
WBC 5.5
Hgb 10.2 L
Hct 30.8 L
Plt Count 157
Sodium 139
Potassium 3.8
Chloride 108 H
Carbon Dioxide 22
BUN 9
Creatinine 1.0
Glucose 89
Calcium 8.6
Total Bilirubin 2.1 H
AST 36
ALT 33
Alkaline Phosphatase 216 H
Vital Signs:
Vital Signs
Temp Pulse Resp BP Pulse Ox
97.9 F 71 13 150/95 100
04/07/25 11:13 04/07/25 12:00 04/07/25 12:00 04/07/25 12:00 04/07/25 09:35
I&O
04/06/25 04/07/25 04/08/25
06:59 06:59 06:59
Intake Total 780 / 780
Balance 780 / 780
Physical Exam
-
General: Well Developed, Well Nourished and No Apparent Distress
HEENT: Normocephalic and Atraumatic
Respiratory: Decreased Breath Sounds (Right-side)
Cardiac: Regular Rhythm and S1/S2
GI: Soft, Normal Bowel Sounds and Tender (Right upper quadrant, epigastric)
Musculoskeletal: Other (Swollen left knee , right heel tenderness)
Skin: Warm, Dry and Rash (Volar aspect of hands bilaterally)
Neuro: Awake (Drowsy), Alert, Oriented and AO x 3
Psych: Calm
[2025-04-07 16:47] LABS: Glucose - Point of Care 110 mg/dl (70-99)
[2025-04-07] MEDS: VANCOCIN 275 MG IV (17:36)
[2025-04-07] MEDS: OCEAN, SALINE MIST 50 SPRAYS NASAL ×2 (17:37→23:28)
--- NOTE | 2025-04-07 17:52 | PTCARENOTE ---
Pt arrived from the ED via stretcher with guards by his side. Pt was an assist x1 to the bed. VSS. Pt is alert and oriented x3. Denies any pain. Tolerating his diet well. BG level WNL. Pt currently not complaining of any SOB. Lungs clear,
diminished. Pt placed on tele 13, NSR. MSAS 0. Vancomyocin now infusing. Pt currently resting in bed eating dinner with no complaints. Guards at the bedside. Call dewey is within reach.
[2025-04-07 21:19] LABS: Glucose - Point of Care 110 mg/dl (70-99)
--- NOTE | 2025-04-07 21:51 | W.DCSUMMARY ---
Discharge Summary
Discharge Data
Date of Admission: 04/06/25
Date of Discharge: 04/08/25
-
Pending Results: No
Hospital Course
Discharging Physician : Dr. Aceves, Dr. Mcbride.
Disposition : [facility]
Principal Discharge diagnosis :
Chronic Discharge diagnosis :
Hospital Course :
Important imaging findings :
Procedure findings :
Discharge Plan
-
Referrals:
[facility] [Family Provider] -
Prescriptions:
No Action
atorvastatin [Lipitor] 40 mg Tablet
40 mg PO HS
mycophenolate mofetil 250 mg Capsule
750 mg PO BID
prednisone 5 mg Tablet
5 mg PO DAILY
clonazepam 1 mg Tablet
1 mg PO DIRECTED
Rx Instructions:
on 04/06 and 04/07 take 2mg bid then on 04/08 and 04/09 take 1mg tid then on 04/10 and 04/11 take 1mg bid then on 04/12 and 04/13 take 0.5mg bid then on 04/14 take 0.5mg daily then stop
thiamine HCl (vitamin B1) 100 mg Tablet
100 mg PO DAILY
aspirin 81 mg Tablet,Delayed Release (Dr/Ec)
81 mg PO DAILY
gabapentin 800 mg Tablet
800 mg PO TID
hydrocortisone 1 % Cream
1 applic TOPICAL BIDPRN PRN (Reason: skin problem)
folic acid 1 mg Tablet
1 mg PO DAILY
tacrolimus [Prograf] 0.5 mg Capsule
1.5 mg PO Q12H
escitalopram oxalate [Lexapro] 10 mg Tablet
10 mg PO DAILY
lactulose 10 gram/15 mL Solution
10 g PO TID
cholecalciferol (vitamin D3) [Vitamin D3] 25 mcg (1,000 unit) Tablet
25 mcg PO DAILY
insulin glargine [Semglee Pen U-100 Insulin] 100 unit/mL (3 mL) Insulin Pen
20 unit SC QPM
Xifaxan 550 mg Tablet
550 mg PO BID
magnesium oxide 400 mg magnesium Tablet
400 mg PO TID
Discharge Date and Time
Print Language: DANISH
[2025-04-07] MEDS: ZOSYN IV (23:06)
[2025-04-07] MEDS: HYDROCORTISONE 1% CREAM 1 APPLIC TOPICAL (23:29)
[2025-04-08] VITALS (11 sets, daily range): BP systolic 152–179; BP diastolic 62–120; PULSE 89–98; O2SAT 97; BMI 32.7
[2025-04-08] MEDS: MOTRIN 400 MG PO (03:19)
--- NOTE | 2025-04-08 06:13 | W.PN.HOSP.TC ---
Addendum entered and electronically signed by Marcos Aceves MD 04/08/25 23:26:
Attending Addendum-
I saw and evaluated the patient. I reviewed the resident�s note and agree with findings and plan as documented in the resident�s note. Sub: Denies SI or HI. has been having elevated BP. complains of left knee pain. Seen with CO present. Denies CP
palps. fevers chills. Full 12 point ROS reviewed and negative except as documented Exam: Vitals reviewed in chart GEN-NAD Heart RRR lungs decreased BS RLL abd soft LE no edema
Plan:
# RLL PNA
#History of pleural effusion drained before in [place] approximately 2 months ago patient was told due to hepatic hydrothorax
97% RA
- not enough fluid to tap per chest US
- CT chest- no pe but showing moderate right pleural effusion? CXR- WNL
- DC vancomycin/ Zosyn- no sxs correlating with PNA
- Strep antigen, Legionella, sputum culture-neg
- Follow CBC, CMP
- repeat CXR-New findings suggesting mild right lower lobe pneumonia
- start augmentin
# SI
- denying SI or plan
- DC 1:1
- appreciate psych Input
#Uncontrolled hypertension
- increase norvasc
- possible benzo w/d
- add clonidine prn
#Contact dermatitis with urticarial rash likely secondary to laundry detergent from longterm
- cont Zyrtec 10 mg now and daily
- May apply Aquaphor to hands and legs
#Eczema bilateral hands/forearms exacerbation
-Aquaphor may apply to hands and legs
#Alcohol abuse started drinking 8 to 9 months after his liver transplant
- Last drink 04/05/2025 typically drinks 2 pints of vodka 3 times a week binge drinks until he passes out
- Patient has NOT been receiving clonazepam at [facility]
- PDMP reviewed- longterm dispensed meds don't show up- appreciate psych input
- Continue folic acid 1 mg daily
- cont thiamine 100 mg p.o. daily
- restart clonazepam taper
- cont MSAS protocol with sxs based treatment
- last MSAS - 3
#Right upper quadrant pain at prior incision line
#Liver transplant [facility] eceived hepatitis C liver that was treated for hepatitis C post transfer
#History of liver failure due to alcohol abuse
- Patient has missed his rejection medication over the past 5 days
- Resume Prograf 1.5 mg every 12 hours, Xifaxan 550 mg p.o. twice daily, lactulose 10 g p.o. 3 times daily
- Continue mycophenolate 750 mg p.o. twice daily
- Continue prednisone 5 mg daily
# Right calc small fx
-PT OT WBAT
# Left Knee Pain
- check x ray
#DM 2/diabetic neuropathy
Accu-Cheks with SSI
Glucose 100
- Hold insulin glargine 20 units SQ every afternoon due to glucose 100- sugars controlled off insulin - DC
- Continue gabapentin 800 mg p.o. 3 times daily
- check HBa1c
#History of ARF with temporary dialysis during transplant stay
#Anxiety/depression
Continue Lexapro 10 mg daily,
#HLD
Continue Lipitor 40 mg at bedtime
#Class I obesity�BMI 32.2
Affects all aspects of care
Weight loss recommended
DVT prophylaxis
Subcu heparin
Full code
[facility]
Time spent coordinating care, review of plan of care with resident, personally reviewed records in EMR, med rec, consults, notes, labs, radiology, d/w nursing psych � 53 mins
Original Note:
Today's Communication/Plan
-
Discharge today
Assessment / Plan
Assessment / Plan
45-year-old male presenting to the ER reporting shortness of breath and dizziness.
Assessment/plan
1. Acute dyspnea
Likely due to parapneumonic effusion versus pneumonia versus hepatic hydrothorax
CT chest evidence of right pleural effusion, GGO's in the right lower lobe suggestive of pneumonia
Legionella, Streptococcus PNA antigen negative, MRSA negative
Discontinue vancomycin/Zosyn
IRad consulted for thoracocentesis, but could not yield a proper tap
New findings suggesting mild right lower lobe pneumonia on chest x-ray.
Will discharge the patient on Augmentin 500/125, twice daily X 7 days.
2. Alcohol abuse disorder
Continue thiamine/folate
Discontinued clonazepam after PDMP verification
Checked with psych, was informed that clonazepam given in longterm would not show up in PDMP.
Psych has initiated clonazepam taper.
3. History of liver failure due to alcohol abuse, s/p liver transplantation.
Ultrasound abdomen�previous cholecystectomy, mild splenomegaly, right upper quadrant liver transplant in place.
Continue mycophenolate, tacrolimus, prednisone, rifaximin, magnesium oxide
4. Contact dermatitis
Continue prednisone, cetirizine
5. Type 2 diabetes mellitus with diabetic neuropathy
Accu-Cheks with SSI
HbA1c 5.1
Continue gabapentin
6. Hypertension
Patient noncompliant with home medication
Labetalol as needed
Amlodipine dose increased to 10 mg
7. Anxiety/depression
Continue Lexapro
8. Normocytic anemia
Hemoglobin 10.2
Monitor
9. Hyperlipidemia
Continue Lipitor
10.�Suicidal ideation
Reported by the nursing staff�patient had suicidal ideation but does not have a plan
Psych consulted
No access to be cares from present
DVT prophylaxis�heparin subcu
PT/OT consulted
Anticipated Discharge: Today
Subjective/Interval History
-
Date of Service: April 08, 2025
Patient patient feels he is withdrawing. Reports having pain all over the body.
Objective Data
-
Labs:
Laboratory Results
04/08/25
05:51
WBC Pending
Hgb Pending
Hct Pending
Plt Count Pending
Sodium Pending
Potassium Pending
Chloride Pending
Carbon Dioxide Pending
BUN Pending
Creatinine Pending
Glucose Pending
Calcium Pending
Total Bilirubin Pending
AST Pending
ALT Pending
Alkaline Phosphatase Pending
Vital Signs:
Vital Signs
Temp Pulse Resp BP Pulse Ox
98.2 F 84 18 156/104 96
04/08/25 03:00 04/08/25 03:00 04/08/25 03:00 04/08/25 03:00 04/08/25 03:00
I&O
04/06/25 04/07/25 04/08/25
06:59 06:59 06:59
Intake Total 1380 / 1380
Balance 1380 / 1380
Physical Exam
-
General: Well Developed and Well Nourished
HEENT: Normocephalic and Atraumatic
Respiratory: Decreased Breath Sounds (Right lower lobe)
Cardiac: Regular Rhythm and S1/S2
GI: Soft, Normal Bowel Sounds and Tender
Skin: Warm and Dry
Neuro: Awake, Alert, Oriented and AO x 3
[2025-04-08 06:25] LABS: % Basophils 0.7 % (0-2); % Eosinophils 3.5 % (0-6); % Immature Granulocytes 0.2 % (0-0.5); % Lymphocytes 36.8 % (20.5-51.1); % Monocytes 10.6 % (1.7-9.3); % Neutrophils 48.2 % (42.2-75.2); Absolute Eosinophils 0.2 10^3/uL (0-0.7); Absolute Lymphocytes 2.1 10^3/uL (1.2-3.4); Absolute Monocytes 0.6 10^3/uL (0.1-0.6); Absolute Neutrophils 2.8 10^3/uL (1.4-6.5); Hematocrit 32.6 % (39.0-52.0); Hemoglobin 10.5 g/dL (13.0-18.0); Mean Corp Hgb Conc. 32.2 g/dL (33.0-37.0); Mean Corpuscular Volume 86.9 fL (80.0-94.0); Mean Platelet Volume 11.3 fL (7.4-10.4); Nucleated Red Blood Cells % 0 % (-); Platelet Count 196 10^3/uL (130-400); Red Blood Cell Count 3.75 10^6/uL (4.70-6.10); Red Cell Dist. Width 13.9 % (11.5-14.5); White Blood Cell Count 5.7 10^3/uL (4.8-10.8)
[2025-04-08 06:45] LABS: ALT (SGPT) 31 U/L (0-50); AST (SGOT) 35 U/L (17-59); Albumin 3.4 g/dl (3.5-5.0); Alkaline Phosphatase 214 U/L (38-126); Blood Urea Nitrogen 12 mg/dl (9-20); Calcium 9.1 mg/dl (8.4-10.2); Carbon Dioxide 24 mmol/L (22-30); Chloride 106 mmol/L (98-107); Estimated Creatinine Clearance 93 ml/min; Glucose 92 mg/dl (70-99); Potassium 4.1 mmol/L (3.5-5.1); Sodium 139 mmol/L (135-145); Total Bilirubin 1.4 mg/dl (0.2-1.3); Total Protein 6.4 g/dl (6.3-8.2); eGFR > 60.00
[2025-04-08 06:52] LABS: B-Hydroxybutyrate 0.06 mmol/L (0.02-0.27)
[2025-04-08 07:35] LABS: Glucose - Point of Care 97 mg/dl (70-99)
[2025-04-08] MEDS: ASPIR LOW (ENTERIC COATED) 81 MG PO (08:03)
[2025-04-08] MEDS: CELLCEPT 750 MG PO ×2 (08:03→20:09)
[2025-04-08] MEDS: XIFAXAN 550 MG PO ×2 (08:03→20:12)
[2025-04-08] MEDS: DELTASONE 5 MG PO (08:03)
[2025-04-08] MEDS: ZYRTEC 10 MG PO (08:03)
[2025-04-08] MEDS: VITAMIN D3 (cholecalciferol) 25 MCG PO (08:04)
[2025-04-08] MEDS: THIAMINE INJECTION 200 MG IV ×2 (08:04→20:11)
[2025-04-08] MEDS: MAG-TAB SR 84 MG PO ×3 (08:04→23:05)
[2025-04-08] MEDS: NORVASC 5 MG PO (08:04)
[2025-04-08] MEDS: FOLVITE 1 MG PO (08:04)
[2025-04-08] MEDS: DUPHALAC/CHRONULAC 10 GRAMS PO ×3 (08:04→23:03)
[2025-04-08] MEDS: NOVOLOG FLEXPEN-LOW RESISTANCE SC ×2 (08:05→11:59)
[2025-04-08] MEDS: HYDROCORTISONE 1% CREAM 1 APPLIC TOPICAL ×2 (08:05→20:10)
[2025-04-08] MEDS: HYDROPHOR 1 APPLIC TOPICAL (08:05)
[2025-04-08] MEDS: SILVADENE 1 APPLIC TOPICAL (08:06)
[2025-04-08] MEDS: OCEAN, SALINE MIST 1 SPRAYS NASAL (08:06)
[2025-04-08] MEDS: LEXAPRO 10 MG PO (08:06)
[2025-04-08] MEDS: NEURONTIN 800 MG PO ×3 (08:11→23:05)
[2025-04-08] MEDS: PROGRAF 1.5 MG PO ×2 (10:18→23:06)
[2025-04-08] MEDS: PROTONIX 40 MG PO (10:18)
--- NOTE | 2025-04-08 11:21 | W.PN.UPDATE ---
Update Note
Progress Note Update
patient seen chart reviewed discussed with nursing pharmacy and spoke to dr tamayo. the patient was anxious this am. after launching into a discussion with him about all of the medication he is taking that should be helping to relieve anxiety and
that he would have to ultimately learn to deal with a certain degree of angst....i discovered that the klonopin taper had been discontinued. dr tamayo explained that they had checked the pdmp and he had not been prescribed klonopin however when the
long-term dispenses it, as they were doing, it would not be recorded in the pdmp . have restored the klonopin taper. the patient has not used ativan as per msas and with the yarsani of the klonopin my sense is he will not need it. will likely dc
tomorrow. while patient was not tremulous or sweating his bp was quite high for the last many readings. there is underlying hypertension but my sense is that the klonopin wd may be playing a role. be that as it may i did emphasize to patient
that we cannot do away with all of the anxiety of his very stressful life with pills and that he will need to get to rehab when his legal issues are sorted and work out a plan for dealing with anxiety as well as how to maintain sobriety. will
continue to follow
[2025-04-08] MEDS: KLONOPIN 1 MG PO ×3 (11:47→23:04)
[2025-04-08 12:00] LABS: Glucose - Point of Care 108 mg/dl (70-99)
[2025-04-08] MEDS: OCEAN, SALINE MIST NASAL ×2 (14:02→17:14)
[2025-04-08] MEDS: TRANDATE 10 MG IV ×2 (14:32→23:09)
[2025-04-08 16:57] LABS: Glucose - Point of Care 153 mg/dl (70-99)
[2025-04-08] MEDS: NOVOLOG FLEXPEN-LOW RESISTANCE 1 UNITS SC (17:04)
[2025-04-08] MEDS: APRESOLINE 10 MG IV (17:04)
[2025-04-08] MEDS: APRESOLINE 5 MG IV (20:06)
[2025-04-08 21:17] LABS: Glucose - Point of Care 126 mg/dl (70-99)
[2025-04-08] MEDS: AUGMENTIN 875 MG/125 MG 1 TABLET PO (23:03)
[2025-04-08] MEDS: OCEAN, SALINE MIST 50 SPRAYS NASAL (23:05)
[2025-04-09 03:55] VITALS: BP 140/90
[2025-04-09 06:00] VITALS: BMI 32.1
[2025-04-09 06:57] LABS: ALT (SGPT) 31 U/L (0-50); AST (SGOT) 39 U/L (17-59); Alkaline Phosphatase 214 U/L (38-126); Blood Urea Nitrogen 14 mg/dl (9-20); Calcium 9.5 mg/dl (8.4-10.2); Carbon Dioxide 21 mmol/L (22-30); Chloride 108 mmol/L (98-107); Estimated Creatinine Clearance 100 ml/min; Glucose 92 mg/dl (70-99); Potassium 4.3 mmol/L (3.5-5.1); Sodium 141 mmol/L (135-145); Total Bilirubin 1.2 mg/dl (0.2-1.3); Total Protein 6.9 g/dl (6.3-8.2); eGFR > 60.00
[2025-04-09 07:05] VITALS: BP 156/102
[2025-04-09 07:13] LABS: Hematocrit 33.6 % (39.0-52.0); Hemoglobin 10.7 g/dL (13.0-18.0); Mean Corp Hgb Conc. 31.8 g/dL (33.0-37.0); Mean Corpuscular Hgb 27.1 pg (27.0-31.0); Mean Corpuscular Volume 85.1 fL (80.0-94.0); Mean Platelet Volume 10.7 fL (7.4-10.4); Platelet Count 219 10^3/uL (130-400); Red Blood Cell Count 3.95 10^6/uL (4.70-6.10); Red Cell Dist. Width 13.9 % (11.5-14.5); White Blood Cell Count 6.4 10^3/uL (4.8-10.8)
[2025-04-09 08:10] LABS: Glucose - Point of Care 108 mg/dl (70-99)
[2025-04-09] MEDS: NOVOLOG FLEXPEN-LOW RESISTANCE SC ×2 (08:21→17:17)
--- NOTE | 2025-04-09 09:10 | W.PN.HOSP.TC ---
Addendum entered and electronically signed by Marcos Aceves MD 04/09/25 22:22:
Attending Addendum-
I saw and evaluated the patient. I reviewed the resident�s note and agree with findings and plan as documented in the resident�s note. Sub: Denies SI or HI. has been having elevated BP. complains of left knee pain. Seen with CO present. 'i dont
wanna go to assisted. i think i can go over the weekend' Denies CP palps. fevers chills. Full 12 point ROS reviewed and negative except as documented Exam: Vitals reviewed in chart GEN-NAD Heart RRR lungs decreased BS RLL abd soft LE no edema
Plan:
# RLL PNA
#History of pleural effusion drained before in [place] approximately 2 months ago patient was told due to hepatic hydrothorax
97% RA
- not enough fluid to tap per chest US
- CT chest- no pe but showing moderate right pleural effusion? CXR- WNL
- DC vancomycin/ Zosyn- no sxs correlating with PNA
- Strep antigen, Legionella, sputum culture-neg
- Follow CBC, CMP
- repeat CXR-New findings suggesting mild right lower lobe pneumonia
- cont augmentin on DC
# SI
- denying SI or plan
- DC 1:1
- appreciate psych Input
#Uncontrolled hypertension
- increase norvasc
- possible benzo w/d
- improved with clonidine prn
#Contact dermatitis with urticarial rash likely secondary to laundry detergent from [facility]iary
- cont Zyrtec 10 mg now and daily
- May apply Aquaphor to hands and legs
#Eczema bilateral hands/forearms exacerbation
-Aquaphor may apply to hands and legs
#Alcohol abuse started drinking 8 to 9 months after his liver transplant
- Last drink 04/05/2025 typically drinks 2 pints of vodka 3 times a week binge drinks until he passes out
- Patient has NOT been receiving clonazepam at [facility]
- PDMP reviewed- penitentiary dispensed meds don't show up- appreciate psych input
- Continue folic acid 1 mg daily
- cont thiamine 100 mg p.o. daily
- restart clonazepam taper on DC
- cont MSAS protocol with sxs based treatment
- last MSAS - 0
#Right upper quadrant pain at prior incision line
#Liver transplant [facility] eceived hepatitis C liver that was treated for hepatitis C post transfer
#History of liver failure due to alcohol abuse
- Patient has missed his rejection medication over the past 5 days
- Resume Prograf 1.5 mg every 12 hours, Xifaxan 550 mg p.o. twice daily, lactulose 10 g p.o. 3 times daily
- Continue mycophenolate 750 mg p.o. twice daily
- Continue prednisone 5 mg daily
# Right calc small fx
-PT OT WBAT
# Left Knee Pain
- check x ray - no fx
- OP follow up
- ortho curbside- no acute intervention
#DM 2/diabetic neuropathy
Accu-Cheks with SSI
Glucose 100
- Hold insulin glargine 20 units SQ every afternoon due to glucose 100- sugars controlled off insulin - DC
- Continue gabapentin 800 mg p.o. 3 times daily
- check HBa1c
#History of ARF with temporary dialysis during transplant stay
#Anxiety/depression
Continue Lexapro 10 mg daily,
#HLD
Continue Lipitor 40 mg at bedtime
#Class I obesity�BMI 32.2
Affects all aspects of care
Weight loss recommended
DVT prophylaxis
Subcu heparin
Full code
[facility]
Time spent coordinating care, DC planning, review of DC plan of care with resident, transition of care, review of records, med rec/scripts sent electronically, consults, notes, d/w consultants, nursing, and CM� 33 mins
Original Note:
Today's Communication/Plan
-
Discharge
Continue antibiotics
Clonidine at discharge
Assessment / Plan
Assessment / Plan
45-year-old male presenting to the ER reporting shortness of breath and dizziness.
Assessment/plan
1. Right lower lobe pneumonia
CT chest evidence of right pleural effusion, GGO's in the right lower lobe suggestive of pneumonia
Legionella, Streptococcus PNA antigen negative, MRSA negative
IRad consulted for thoracocentesis, but could not yield a proper tap
New findings suggesting mild right lower lobe pneumonia on chest x-ray on 04/08/2025.
Started on Augmentin 500/125, twice daily X 7 days
2. Alcohol abuse disorder
Continue thiamine/folate
Discontinued clonazepam after PDMP verification
Checked with psych, was informed that clonazepam given in penitentiary would not show up in PDMP.
Psych has initiated clonazepam taper.
3. History of liver failure due to alcohol abuse, s/p liver transplantation.
Ultrasound abdomen�previous cholecystectomy, mild splenomegaly, right upper quadrant liver transplant in place.
Continue mycophenolate, tacrolimus, prednisone, rifaximin, magnesium oxide
4. Contact dermatitis
Continue prednisone, cetirizine
5. Type 2 diabetes mellitus with diabetic neuropathy
Accu-Cheks with SSI
HbA1c 5.1
Continue gabapentin
6. Hypertension
Patient noncompliant with home medication
Patient has elevated blood pressure readings yesterday
Patient might be withdrawing
Amlodipine dose increased to 10 mg
Clonidine as needed
Labetalol as needed
7. Anxiety/depression
Continue Lexapro
8. Normocytic anemia
Hemoglobin 10.2
Monitor
9. Hyperlipidemia
Continue Lipitor
10.�Suicidal ideation
Reported by the nursing staff�patient had suicidal ideation but does not have a plan
Psych consulted
No access to be cares from present
DVT prophylaxis�heparin subcu
PT/OT consulted-recommended outpatient PT when able
Discharge to [facility].
Anticipated Discharge: Today
Subjective/Interval History
-
Date of Service: April 09, 2025
Patient reports having knee pain.
Objective Data
-
Labs:
Laboratory Results
04/09/25
05:55
WBC 6.4
Hgb 10.7 L
Hct 33.6 L
Plt Count 219
Sodium 141
Potassium 4.3
Chloride 108 H
Carbon Dioxide 21 L
BUN 14
Creatinine 1.1
Glucose 92
Calcium 9.5
Total Bilirubin 1.2
AST 39
ALT 31
Alkaline Phosphatase 214 H
Vital Signs:
Vital Signs
Temp Pulse Resp BP Pulse Ox
97.4 F 76 19 156/102 95
04/09/25 07:05 04/09/25 07:05 04/09/25 07:05 04/09/25 07:05 04/09/25 07:05
I&O
04/08/25 04/09/25 04/10/25
06:59 06:59 06:59
Intake Total 2340 / 2340 1680 / 1680
Output Total 1600 / 1600
Balance 2340 / 2340 80 / 80
Review of Systems
-
All other systems: Reviewed and negative (Except as mentioned above)
Physical Exam
-
General: Well Developed and Well Nourished
HEENT: Normocephalic and Atraumatic
Respiratory: Decreased Breath Sounds (Right lower lobe)
Cardiac: Regular Rhythm and S1/S2
GI: Soft, Nondistended, Normal Bowel Sounds and Tender
Musculoskeletal: Other (Left knee swelling, tenderness)
Skin: Warm and Dry
Neuro: Awake, Alert, Oriented and AO x 3
[2025-04-09] MEDS: CELLCEPT 750 MG PO (09:33)
[2025-04-09] MEDS: AUGMENTIN 875 MG/125 MG 1 TABLET PO (09:34)
[2025-04-09] MEDS: VITAMIN D3 (cholecalciferol) 25 MCG PO (09:34)
[2025-04-09] MEDS: ASPIR LOW (ENTERIC COATED) 81 MG PO (09:34)
[2025-04-09] MEDS: KLONOPIN 1 MG PO ×2 (09:35→17:21)
[2025-04-09] MEDS: LEXAPRO 10 MG PO (09:35)
[2025-04-09] MEDS: NEURONTIN 800 MG PO ×2 (09:35→17:20)
[2025-04-09] MEDS: DUPHALAC/CHRONULAC 10 GRAMS PO ×2 (09:36→17:21)
[2025-04-09] MEDS: FOLVITE 1 MG PO (09:36)
[2025-04-09] MEDS: NORVASC 10 MG PO (09:36)
[2025-04-09] MEDS: THIAMINE INJECTION 200 MG IV (09:37)
[2025-04-09] MEDS: MAG-TAB SR 84 MG PO ×2 (09:37→17:20)
[2025-04-09] MEDS: PROTONIX 40 MG PO (09:38)
[2025-04-09] MEDS: PROGRAF 1.5 MG PO (09:47)
[2025-04-09] MEDS: XIFAXAN 550 MG PO (09:49)
[2025-04-09] MEDS: DELTASONE 5 MG PO (09:49)
[2025-04-09] MEDS: HYDROCORTISONE 1% CREAM 1 APPLIC TOPICAL (09:51)
[2025-04-09] MEDS: OCEAN, SALINE MIST 1 SPRAYS NASAL (09:51)
[2025-04-09 10:50] LABS: % Basophils 0.8 % (0-2); % Eosinophils 3.3 % (0-6); % Immature Granulocytes 0.2 % (0-0.5); % Lymphocytes 46.3 % (20.5-51.1); % Monocytes 10.1 % (1.7-9.3); % Neutrophils 39.3 % (42.2-75.2); Absolute Basophils 0.1 10^3/uL (0-0.2); Absolute Eosinophils 0.2 10^3/uL (0-0.7); Absolute Monocytes 0.7 10^3/uL (0.1-0.6); Absolute Neutrophils 2.5 10^3/uL (1.4-6.5); Nucleated Red Blood Cells % 0 % (-)
[2025-04-09 11:05] VITALS: BP 145/108
[2025-04-09 12:21] LABS: Glucose - Point of Care 153 mg/dl (70-99)
--- NOTE | 2025-04-09 13:08 | W.PN.UPDATE ---
Update Note
Progress Note Update
patient seen chart reviewed. discussed with nursing. spoke w dr hunter. noted effusion on knee xray. patient is in signficant pain according to nursing and self report. 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
[employer] but never got his degree) and had a number of injuries. he has had knee drained in the past w cortisone shot w some relief. ordered ortho consult hoping they would consider rx as when he returns to assisted they are unlikely to rx this and he
is suffering (perhaps a part of his high bp is secondary to pain)
discussed with him what further rx i would recommend for his psychiatic issues. he needs to consider an in pt dual dx program. granted these are largely in free standing psych facilities and that is potentially problematic for him as freestanding
psych facilities don't like to take patients with serious medical issues (liver transplant recipients ) and he has been turned down before. [facility] (which we are not allowed to consult bc of assisted rules)would be able to help him here and he could
access their services when he is released from assisted by coming to [facility]. another option would be to return to [facility] where he has been a client and ask to see a cm there for assist. he should see a cm in any case as he should be
eligible for MA to go along with his medicare and this would reduce his financial burden . in any case wherever he goes addiction treatment should be a part of his care not simply psychiatric. did not make any changes in his psych medications. i
am told he may be dc today.
[2025-04-09] MEDS: SILVADENE 1 APPLIC TOPICAL (13:15)
[2025-04-09] MEDS: HYDROPHOR 1 APPLIC TOPICAL (13:16)
[2025-04-09] MEDS: NOVOLOG FLEXPEN-LOW RESISTANCE 1 UNITS SC (13:17)
[2025-04-09] MEDS: LIDOCAINE 4% PATCH 1 PATCH TOPICAL (14:09)
[2025-04-09] MEDS: CATAPRES 0.1 MG PO (14:10)
[2025-04-09] MEDS: OCEAN, SALINE MIST NASAL ×2 (14:10→17:21)
--- NOTE | 2025-04-09 16:14 | CM ---
Pt for discharge back to [facility] via [facility].
Report: [phone]
[2025-04-09 17:05] LABS: Glucose - Point of Care 119 mg/dl (70-99)
[2025-04-09 18:02] VITALS: BP 142/98
--- NOTE | 2025-04-10 22:46 | W.DCSUMMARY ---
Discharge Summary
Discharge Data
Date of Admission: 04/06/25
Date of Discharge: 04/11/25
-
Pending Results: No
Hospital Course
Discharging Physician : Dr. Aceves, Dr. Mcbride.
Disposition : [facility]
Principal Discharge diagnosis : Pneumonia.
Hospital Course : 45-year-old male past medical history of alcoholic cirrhosis status post liver transplant in 2020, history of thoracentesis secondary to hepatic hydrothorax , diabetes, anxiety/depression, neuropathy, presenting with shortness of
breath, cough and right upper quadrant pain, left knee pain and swelling, right heel pain.� Has been drinking alcohol and not taking his transplant medications.
In the ER, patient had elevated blood pressure up to 156/103. D-dimer of 2.5.� Hemoglobin 10.9. CT PE chest shows moderate-sized right pleural effusion, moderate subpleural groundglass opacity in the basilar segments of the right lower lobe possibly
secondary to compressive segment segmental atelectasis versus right lower lobe pneumonia.� Mild cardiomegaly.
Covid and flu- negative.Cardiac BNP 283.
Patient was started on IV antibiotics, IR consulted for thoracocentesis, but could not tap due to inadequate fluid.
Patient was started on alcohol withdrawal protocol, thiamine and folate.� As needed labetalol for hypertension. All his transplant medications were resumed.
During his hospital stay, patient had an episode of suicidal ideation, psych was consulted and was appropriately managed. His blood pressures were running high, suspect withdrawing, was initiated on clonazepam taper, as needed clonidine and
amlodipine increased to 10 mg. Rest of his chronic conditions were managed as below. Patient has clinically improved, vitals stable and planned to be discharged to [facility] on clonazepam taper and Augmentin with instructions.
Contact dermatitis- prednisone, zyrtec.
Diabetes/ diabetic neuropathy- Insulin SSI, Gabapentin.
Anxiety/ depression- escitalopram.
HLD- lipitor.
Important imaging findings :
CT chest- 1. MODERATE-SIZED RIGHT PLEURAL EFFUSION.
2. Moderate subpleural ground-glass opacity in the basilar segments of the right lower lobe. Diagnostic possibilities are (1) compressive subsegmental atelectasis or (2) right lower lobe pneumonia (if there are signs/symptoms of pulmonary
infection).
3. Mild cardiomegaly.
4. Mild calcific atherosclerotic plaque in the left coronary artery.
5. Right upper quadrant liver transplant in place.
6. Severe bilateral gynecomastia.
USG- abdomen- 1. Right upper quadrant liver transplant in place.
2. No sonographic evidence for ascites or biliary obstruction.
3. Previous cholecystectomy.
4. Mild splenomegaly.
5. Moderate right and mild left renal cortical volume loss.
6. Moderate-sized right pleural effusion.
Os Calcis Right- 1. Tiny acute nondisplaced fracture of a 2.3 mm calcaneal enthesophyte located at the attachment of the long plantar ligament.
2. 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
Left knee X ray-
No evidence of acute fracture or dislocation.
Degenerative changes of the left knee. Small suprapatellar joint effusion is suggested.
Discharge Plan
-
Patient Disposition: [facility]
Discharge Diagnosis/Procedures: acute dyspnea, new onset HTN
Condition: Good
Diet: Low Cholesterol, Low Sodium and Diabetic, Carb Controlled
Activity: As tolerated
Bathing Restrictions: OK to Shower
Other Services: PT
Referrals:
[facility]. [facility],Facility [Family Provider] -
Prescriptions:
New
thiamine HCl (vitamin B1) 100 mg capsule
100 mg PO DAILY Qty: 44 0RF
Rx Instructions:
Take 100 mg, twice daily for 7 days. Then 100 mg once daily for 30 days.
amlodipine [Norvasc] 10 mg tablet
10 mg PO DAILY Qty: 30 0RF
clonidine HCl 0.1 mg Tablet
0.1 mg PO Q6HPRN PRN (Reason: DBP > 100 or SBP > 160) 15 Days Qty: 60 0RF
amoxicillin-pot clavulanate 875-125 mg Tablet
1 tab PO Q12 6 Days Qty: 12 0RF
Continued
atorvastatin [Lipitor] 40 mg Tablet
40 mg PO HS
mycophenolate mofetil 250 mg Capsule
750 mg PO BID
prednisone 5 mg Tablet
5 mg PO DAILY
clonazepam 1 mg Tablet
1 mg PO DIRECTED
Rx Instructions:
on 04/06 and 04/07 take 2mg bid then on 04/08 and 04/09 take 1mg tid then on 04/10 and 04/11 take 1mg bid then on 04/12 and 04/13 take 0.5mg bid then on 04/14 take 0.5mg daily then stop
thiamine HCl (vitamin B1) 100 mg Tablet
100 mg PO DAILY
aspirin 81 mg Tablet,Delayed Release (Dr/Ec)
81 mg PO DAILY
gabapentin 800 mg Tablet
800 mg PO TID
hydrocortisone 1 % Cream
1 applic TOPICAL BIDPRN PRN (Reason: skin problem)
folic acid 1 mg Tablet
1 mg PO DAILY
tacrolimus [Prograf] 0.5 mg Capsule
1.5 mg PO Q12H
escitalopram oxalate [Lexapro] 10 mg Tablet
10 mg PO DAILY
lactulose 10 gram/15 mL Solution
10 g PO TID
cholecalciferol (vitamin D3) [Vitamin D3] 25 mcg (1,000 unit) Tablet
25 mcg PO DAILY
insulin glargine 100 unit/mL (3 mL) Insulin Pen
20 unit SC QPM
Xifaxan 550 mg Tablet
550 mg PO BID
magnesium oxide 400 mg magnesium Tablet
400 mg PO TID
Discharge Orders:
Discharge Patient (As Directed); Ordered 04/09/25
Ordered By: Rae Huertas
Discharge Date and Time
Discharge Date/Time: 04/09/25 18:04
Print Language: HUNGARIAN
== END 2025-04-09 18:04 | DRG 194 ==
LOC: 3 WEST ACU 21:47
PROVIDERS: Clinical Nurse Specialist Family Health; Nurse Practitioner; Student in an Organized Health Care Education/Training Program; ADMITTING PHYSICIAN Hospitalist; ATTENDING PHYSICIAN Family Medicine; EMERGENCY PHYSICIAN Emergency Medicine; OTHER PHYSICIAN Psychiatry & Neurology Psychiatry
DX: J18.9 Pneumonia, unspecified organism (principal); J91.8 Pleural effusion in other conditions classified elsewhere; K12.2 Cellulitis and abscess of mouth; R45.851 Suicidal ideations; Z94.4 Liver transplant status; N62 Hypertrophy of breast; M17.12 Unilateral primary osteoarthritis, left knee; F32.A Depression, unspecified; F41.9 Anxiety disorder, unspecified; I10 Essential (primary) hypertension; F10.10 Alcohol abuse, uncomplicated; E11.40 Type 2 diabetes mellitus with diabetic neuropathy, unspecified; E78.5 Hyperlipidemia, unspecified; L24.5 Irritant contact dermatitis due to other chemical products; D64.9 Anemia, unspecified; E66.811 Obesity, class 1; F17.200 Nicotine dependence, unspecified, uncomplicated; Z79.4 Long term (current) use of insulin; Z79.82 Long term (current) use of aspirin; Z90.49 Acquired absence of other specified parts of digestive tract; Z79.899 Other long term (current) drug therapy; Z68.32 Body mass index [BMI] 32.0-32.9, adult; Z11.52 Encounter for screening for COVID-19
CPT/HCPCS: 71046; 71275; 73560; 73650; 76604; 76700; 80048; 80053; 80076; 80306; 80307; 81003; 81015; 82010; 82077; 82607; 82728; 82746; 82947; 82962; 82977; 83036; 83540; 83550; 83615; 83735; 83880; 84100; 84155; 84484; 85014; 85025; 85379; 85610; 85730; 87070; 87449; 87502; 87811; 87899; 93005; 97163; 97166; Q9967

== ENCOUNTER 2025-04-12 09:01 | Emergency (ER) | payer OTHER, SELFPAY ==
[2025-04-12] VITALS (8 sets, daily range): BP systolic 97–143; BP diastolic 51–91; PULSE 63–73; BMI 32.0
[2025-04-12 09:29] LABS: % Basophils 0.6 % (0-2); % Eosinophils 2.3 % (0-6); % Immature Granulocytes 0.2 % (0-0.5); % Lymphocytes 45.9 % (20.5-51.1); % Monocytes 11.3 % (1.7-9.3); % Neutrophils 39.7 % (42.2-75.2); Absolute Eosinophils 0.2 10^3/uL (0-0.7); Absolute Monocytes 0.7 10^3/uL (0.1-0.6); Absolute Neutrophils 2.6 10^3/uL (1.4-6.5); Hematocrit 36.5 % (39.0-52.0); Hemoglobin 11.6 g/dL (13.0-18.0); Mean Corp Hgb Conc. 31.8 g/dL (33.0-37.0); Mean Corpuscular Hgb 27.2 pg (27.0-31.0); Mean Corpuscular Volume 85.7 fL (80.0-94.0); Mean Platelet Volume 10.8 fL (7.4-10.4); Nucleated Red Blood Cells % 0 % (-); Platelet Count 224 10^3/uL (130-400); Red Blood Cell Count 4.26 10^6/uL (4.70-6.10); Red Cell Dist. Width 13.9 % (11.5-14.5); White Blood Cell Count 6.5 10^3/uL (4.8-10.8)
[2025-04-12 09:44] LABS: ALT (SGPT) 39 U/L (0-50); AST (SGOT) 49 U/L (17-59); Albumin 3.8 g/dl (3.5-5.0); Alkaline Phosphatase 190 U/L (38-126); Blood Urea Nitrogen 18 mg/dl (9-20); Calcium 9.9 mg/dl (8.4-10.2); Carbon Dioxide 28 mmol/L (22-30); Chloride 106 mmol/L (98-107); Estimated Creatinine Clearance 85 ml/min; Glucose 115 mg/dl (70-99); Potassium 4.5 mmol/L (3.5-5.1); Sodium 142 mmol/L (135-145); Total Bilirubin 1.2 mg/dl (0.2-1.3); Total Protein 6.8 g/dl (6.3-8.2); eGFR > 60.00
--- NOTE | 2025-04-12 09:48 | ED.GENMED ---
History of Present Illness
General
Chief Complaint: Headache
Source: patient
Exam Limitations: none
Time Seen by Provider: 04/12/25 09:30
Nursing documentation reviewed up to this point in time: agreed with except (pt did not have CVA)
History of Present Illness
History of Present Illness:
45 yo male prisoner from [facility] w h/o alcoholic cirrhosis status post liver transplant in 2020, history of thoracentesis secondary to hepatic hydrothorax , IDDM, anxiety/depression, neuropathy HLD. Was admitted here 04/06-04/11/25 for moderate R pleural
effusion, IR thoracentesis but could not tap as not enough fluid, CXR yesterday showing prob mild RLL PNA. IV antibiotics, was discharged on Clonazepam taper for HTN (withdrawal and suicidal ideation), Clonidine 0.1 mg and Amlodipine 10 mg
Augmentin. Presents for headache. States he was taken down to the nursed station at [facility] this a.m. for a regular checkup after discharge from here yesterday. States as he got to the nurses office had sudden severe posterior headache 'shooting to
forehead and blurry vision with a 'white glow over everything' since. States 'I almost passed out' sitting in chair at [facility] [place] and 'they caught me' so no fall.
Nurse Daylin at the [facility] states patient did not faint, states when officers walked him in his legs buckled, he was sat in chair and he was holding his head complaining of a headache.
BP now 82/63 and 97/74 rechecked. Daylin states his previous BPs: 138/98, 128/92, 158/102
Patient arrived to be [facility] from [facility] discharge
Transplant Center [facility], RYLEE Gagnon Liver transplant 2020, alcohol free since then until 3 weeks ago when he told staff his mother gave him alcohol. Ascites chronic.
[facility] paperwork read to me by Daylin, states he was admitted with right upper quadrant pain because he stopped taking his immunosuppressant drugs. Found liver enzymes elevated due to not taking his meds, prednisone lowered and liver functions
improved, alcohol level was elevated on admission, (174), UDS was negative, hemoglobin 12.2 when he was admitted to [facility].
Past History
Social History
Tobacco: Non-smoker
Alcohol: Chronic alcoholic
Drug: None
Personal: Single
Living: long-term
Review of Systems
Review of Systems
Allergies reviewed?: Yes
All Other Systems: ROS reviewed and negative except as documented in HPI and ROS
Constitutional: Denies fever or chills
EENT: Denies sore throat
Respiratory: Denies trouble breathing
Cardiac: Denies chest pain, diaphoresis, palpitations or syncope
ABD/GI: Denies abdominal pain, nausea, vomiting or diarrhea
: Denies dysuria, frequency or difficulty voiding
Musculoskeletal: Reports no symptoms
Skin: Reports no symptoms
Neurological: Reports headache; Denies dizzy, weakness or numbness
Phy Exam
Physical Exam
Physical Exam:
GENERAL: No acute distress. A&Ox3.
CONSTITUTIONAL: Afebrile.
EYES: clear, conjunctivae normal
ENMT: moist mucus membranes, Pharynx nl
RESPIRATORY: Regular respirations, nonlabored, lungs clear.
CARDIOVASCULAR: Regular rate and rhythm, no murmurs, no rubs.
GI: Soft, nontender, normal BS
MUSCULOSKELETAL: Moves with ease. Well perfused.
SKIN: Warm, dry, pink
PSYCH: Normal mood and affect. Well kept, interactive and appropriate
NEUROLOGIC: Awake, alert and oriented. Strength equal throughout. No focal neurological deficits speech clear. Cranial nerves II through XII intact.
Course
Orders/Labs/Results
Orders:
Orders
04/12/25 09:10
Electrocardiogram (*1) Urgent
Reason for Study: Shortness of Breath
EKG- Treatment ONCE
04/12/25 09:20
Complete Blood Count/With Diff Urgent
Comprehensive Metabolic Panel Urgent
04/12/25 10:08
CT Head W/o Iv Contrast Urgent
Comment:
Reason For Exam: headache
04/12/25 10:11
Visual Acuity- Treatment ONCE
04/12/25 10:14
Orthostatic VS- Treatment ONCE
04/12/25 11:37
Acetaminophen [Tylenol] 1,000 mg PO NOW STA
04/12/25 11:39
0.9% Sodium Chloride 500 ml [Nss] 500 ml IV BOLUS
Abnormal Lab Results
04/12/25
09:20
RBC 4.26 L 10^6/uL
(4.70-6.10)
Hgb 11.6 L g/dL
(13.0-18.0)
Hct 36.5 L %
(39.0-52.0)
MCHC 31.8 L g/dL
(33.0-37.0)
MPV 10.8 H fL
(7.4-10.4)
Absolute Monos (auto) 0.7 H 10^3/uL
(0.1-0.6)
Neutrophils % 39.7 L %
(42.2-75.2)
Monocytes % 11.3 H %
(1.7-9.3)
Glucose 115 H mg/dl
(70-99)
Alkaline Phosphatase 190 H U/L
(38-126)
04/12/25 09:20
04/12/25 09:20
Vital Signs
Initial and Last Documented VS:
Initial Vital Signs
Temp Pulse Resp BP Pulse Ox
98.4 F 68 16 98/75 100
04/12/25 09:04 04/12/25 09:04 04/12/25 09:04 04/12/25 09:04 04/12/25 09:04
Last Documented Vital Signs
Temp Pulse Resp BP Pulse Ox
98.4 F 64 12 143/91 99
04/12/25 09:04 04/12/25 12:00 04/12/25 12:00 04/12/25 12:00 04/12/25 12:00
MDM/Problems Addressed
Differential Diagnosis Includes:
side effect new medications, dehydration, hypoglycemia, brain bleed, tension headache
MDM/Problems Addressed:
45 yo male prisoner from [facility] w h/o alcoholic cirrhosis status post liver transplant in 2020, history of thoracentesis secondary to hepatic hydrothorax , IDDM, anxiety/depression, neuropathy HLD. Was admitted here 04/06-04/11/25 for moderate R pleural
effusion, IR thoracentesis but could not tap as not enough fluid, CXR yesterday showing prob mild RLL PNA. IV antibiotics, was discharged on Clonazepam taper for HTN (withdrawal and suicidal ideation), Clonidine 0.1 mg and Amlodipine 10 mg
Augmentin. Presents for headache. States he was taken down to the nursed station at [facility] this a.m. for a regular checkup after discharge from here yesterday. States as he got to the nurses office had sudden severe posterior headache 'shooting to
forehead and blurry vision with a 'white glow over everything' since. States 'I almost passed out' sitting in chair at [facility] [place] [facility] and 'they caught me' so no fall.
Nurse Daylin at the [facility] states patient did not faint, states when officers walked him in his legs buckled, he was sat in chair and he was holding his head complaining of a headache.
BP now 82/63 and 97/74 rechecked. aDylin states his previous BPs: 138/98, 128/92, 158/102
Patient arrived to be [facility] from [facility] discharge
Transplant Center [facility], [facility] G[facility] Liver transplant 2020, alcohol free since then until 3 weeks ago when he told staff his mother gave him alcohol. Ascites chronic.
[facility] paperwork read to me by Daylin, states he was admitted with right upper quadrant pain because he stopped taking his immunosuppressant drugs. Found liver enzymes elevated due to not taking his meds, prednisone lowered and liver functions
improved, alcohol level was elevated on admission, (174), UDS was negative, hemoglobin 12.2 when he was admitted to [facility].
11:30 a.m.
Orthostatics positive, too symptomatic to stand. IVFs ordered
CBC, CMP with no clinically significant abnormality
Head CT: No acute finding
Spoke with Daylin again at [facility], instructed to stop the Clonidine and Amlodipine. She will have the medical personnel follow up with him.
Informed pt to change positions slowly for next few days.
Tylenol given for headache.
Stable for discharge
BP now 116/87
Visual acuity noted. Most likely needs glasses
*Critical Care Note
Total Time (30-74mins, 75-104mins- exclusive of procedures): Not Applicable
ED Attending Note
-
Portions of this chart may have been created with voice recognition software.� Occasional wrong word or��sound alike� substitutions may have occurred due to the inherent limitations of voice recognition software.
Discharge Plan
Departure
Patient Disposition: [facility]
Date of Disposition: 04/12/25
Time of Disposition: 12:10
Patient with high blood pressure during this ER visit?: No
Condition: Good
Discharge Problem:
Headache, Orthostatic hypotension, Drug side effects
Instructions: Orthostatic hypotension, Headache, Adult (DC)
Prescriptions:
No Action
atorvastatin [Lipitor] 40 mg Tablet
40 mg PO HS
mycophenolate mofetil 250 mg Capsule
750 mg PO BID
prednisone 5 mg Tablet
5 mg PO DAILY
clonazepam 1 mg Tablet
1 mg PO DIRECTED
Rx Instructions:
on 04/06 and 04/07 take 2mg bid then on 04/08 and 04/09 take 1mg tid then on 04/10 and 04/11 take 1mg bid then on 04/12 and 04/13 take 0.5mg bid then on 04/14 take 0.5mg daily then stop
thiamine HCl (vitamin B1) 100 mg Tablet
100 mg PO DAILY
aspirin 81 mg Tablet,Delayed Release (Dr/Ec)
81 mg PO DAILY
gabapentin 800 mg Tablet
800 mg PO TID
hydrocortisone 1 % Cream
1 applic TOPICAL BIDPRN PRN (Reason: skin problem)
folic acid 1 mg Tablet
1 mg PO DAILY
tacrolimus [Prograf] 0.5 mg Capsule
1.5 mg PO Q12H
escitalopram oxalate [Lexapro] 10 mg Tablet
10 mg PO DAILY
lactulose 10 gram/15 mL Solution
10 g PO TID
cholecalciferol (vitamin D3) [Vitamin D3] 25 mcg (1,000 unit) Tablet
25 mcg PO DAILY
insulin glargine 100 unit/mL (3 mL) Insulin Pen
20 unit SC QPM
Xifaxan 550 mg Tablet
550 mg PO BID
magnesium oxide 400 mg magnesium Tablet
400 mg PO TID
thiamine HCl (vitamin B1) 100 mg capsule
100 mg PO DAILY Qty: 44 0RF
Rx Instructions:
Take 100 mg, twice daily for 7 days. Then 100 mg once daily for 30 days.
amlodipine [Norvasc] 10 mg tablet
10 mg PO DAILY Qty: 30 0RF
clonidine HCl 0.1 mg Tablet
0.1 mg PO Q6HPRN PRN (Reason: DBP > 100 or SBP > 160) 15 Days Qty: 60 0RF
amoxicillin-pot clavulanate 875-125 mg Tablet
1 tab PO Q12 6 Days Qty: 12 0RF
Referrals:
[facility] [Family Provider] -
Activity Restrictions/Additional Instructions:
As we discussed, your symptoms of feeling lightheaded and faint are most likely from the new medications you are taking since your recent hospitalization. These are clonidine and amlodipine.
Stop these medications.
Change positions slowly for the next few days to avoid getting dizzy and falling.
You were given 500 cc of IV fluids here today
Drink at least six 8 ounce glasses of water daily for the next few days.
Your head CT shows nothing worrisome
Interventions
Interventions:
*Risk Screen - Suicide Last Done: 04/12/25 09:04
*General Assessment Last Done: 04/12/25 09:04
*Neglect/Abuse Screening Last Done: 04/12/25 09:04
*ED- Fall Risk Assessment Last Done: 04/12/25 09:04
*ED COVID-19 Vaccine History Last Done: 04/12/25 09:04
*Nursing Disposition Last Done: 04/12/25 12:52
ED- Neurological Assessment Last Done: 04/12/25 09:04
Discharge Date and Time
Discharge Date/Time: 04/12/25 12:55
Print Language: CITIZEN OF [place]
[2025-04-12] MEDS: TYLENOL 1000 MG PO (11:43)
[2025-04-12] MEDS: NSS 500 IV (11:43)
== END 2025-04-12 12:55 ==
LOC: EMR 09:01
PROVIDERS: Emergency Medicine; EMERGENCY PHYSICIAN Emergency Medicine
DX: R51.9 Headache, unspecified (principal); H53.8 Other visual disturbances; R06.02 Shortness of breath; I95.1 Orthostatic hypotension; T50.905A Adverse effect of unspecified drugs, medicaments and biological substances, initial encounter; Y92.148 Other place in prison as the place of occurrence of the external cause; K70.31 Alcoholic cirrhosis of liver with ascites; E11.40 Type 2 diabetes mellitus with diabetic neuropathy, unspecified; J90 Pleural effusion, not elsewhere classified; F32.A Depression, unspecified; F41.9 Anxiety disorder, unspecified; Z94.4 Liver transplant status; Z79.4 Long term (current) use of insulin; Z79.82 Long term (current) use of aspirin
CPT/HCPCS: 99285; 96360; 70450; 80053; 85025; 93005